=== PATIENT | female | born 1990 | race Caucasian/White ===

== ENCOUNTER 2018-01-01 05:06 | Emergency (ER) | payer OTHER ==
--- NOTE | 2018-01-01 05:13 | EDPHY ---
H & P Time Seen by Provider: 01/01/18 05:11 HPI/ROS: Chief Complaint: Syncope HPI: 27-year-old woman visiting from [place] got up to go to the bathroom this morning. On the way back from the bathroom patient had a syncopal episode. She states that when she got up she was not feeling well with general malaise. No nausea or vomiting. Did state she started developing a sore throat yesterday afternoon. Also had 2 glasses of wine with dinner. No fevers or chills. No chest pain or palpitations. Does not have a history of fainting in the past. No family history of coronary artery disease or sudden cardiac . Currently is feeling better with some general malaise at this time. No leg pain or swelling. No shortness of breath. ROS: 10 point Review of Systems is negative except as noted in the HPI. 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 Family History: non-contributory Physical Exam: Gen: Awake, Alert, No Distress HEENT: Nose: no rhinorrhea Eyes: PERRLA, EOMI Mouth: Moist mucosa Neck: Supple, no JVD Chest: nontender, lungs clear to auscultation Heart: S1, S2 normal, no murmur Abd: Soft, non-tender, no guarding Back: no CVA tenderness, no midline tenderness Ext: no edema, non-tender Skin: no rash Neuro: CN II-XII intact, Sensation grossly intact, Strength 5/5 in bilateral upper and lower extremities Constitutional: Initial Vital Signs Temperature (C) 36.7 C 01/01/18 05:05 Heart Rate 51 L 01/01/18 05:05 Respiratory Rate 20 01/01/18 05:05 Blood Pressure 110/72 01/01/18 05:05 O2 Sat (%) 92 01/01/18 05:05 O2 Delivery Mode Room Air Allergies/Adverse Reactions: amoxicillin Allergy (Verified 01/01/18 05:10) Penicillins Allergy (Verified 01/01/18 05:10) Medical Decision Making - Diagnostics EKG Interpretation: ECG time 5:14 a.m., sinus bradycardia with a rate of 45, borderline first- degree AV block, no acute ST or T-wave changes. 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 Patient is improved after a L of normal saline. Blood work is completely unremarkable. She had her orthostatic vital signs are normal. She is ambulating unassisted in the emergency department. Think her symptoms are likely secondary to a vasovagal response after going to the bathroom. She is tolerating p. O.. Will discharge with follow up with physician when she returns home. - Data Points Laboratory Results: Laboratory Results 01/01/18 05:15 01/01/18 05:15 01/01/18 01/01/18 01/01/18 05:15 05:15 05:15 WBC 14.64 10^3/uL H 10^3/uL (3.80-9.50) RBC 4.88 10^6/uL 10^6/uL (4.18-5.33) Hgb 15.6 g/dL g/dL (12.6-16.3) Hct 45.2 % % (38.0-47.0) MCV 92.6 fL fL (81.5-99.8) MCH 32.0 pg pg (27.9-34.1) MCHC 34.5 g/dL g/dL (32.4-36.7) RDW 11.7 % % (11.5-15.2) Plt Count 257 10^3/uL 10^3/uL (150-400) MPV 10.1 fL fL (8.7-11.7) Neut % (Auto) 75.0 % H % (39.3-74.2) Lymph % (Auto) 14.9 % L % (15.0-45.0) [place] % (Auto) 7.9 % % (4.5-13.0) Eos % (Auto) 1.5 % % (0.6-7.6) Baso % (Auto) 0.4 % % (0.3-1.7) Nucleat RBC Rel Count 0.0 % % (0.0-0.2) Absolute Neuts (auto) 10.98 10^3/uL H 10^3/uL (1.70-6.50) Absolute Lymphs (auto) 2.18 10^3/uL 10^3/uL (1.00-3.00) Absolute Monos (auto) 1.15 10^3/uL H 10^3/uL (0.30-0.80) Absolute Eos (auto) 0.22 10^3/uL 10^3/uL (0.03-0.40) Absolute Basos (auto) 0.06 10^3/uL 10^3/uL (0.02-0.10) Absolute Nucleated RBC 0.00 10^3/uL 10^3/uL (0-0.01) Immature Gran % 0.3 % % (0.0-1.1) Immature Gran # 0.05 10^3/uL 10^3/uL (0.00-0.10) Sodium 141 mEq/L mEq/L (135-145) Potassium 4.5 mEq/L mEq/L (3.5-5.2) Chloride 102 mEq/L mEq/L (97-110) Carbon Dioxide 26 mEq/l mEq/l (22-31) Anion Gap 13 mEq/L mEq/L (8-16) BUN 13 mg/dL mg/dL (7-23) Creatinine 0.7 mg/dL mg/dL (0.6-1.0) Estimated GFR > 60 Glucose 126 mg/dL H mg/dL (70-100) Calcium 9.8 mg/dL mg/dL (8.5-10.4) Beta HCG, Qual NEGATIVE Departure - Departure Disposition: Home, Routine, Self-Care Clinical Impression: Vasovagal syncope Condition: Good Instructions: Syncope (ED) Additional Instructions: Make sure to drink plenty of fluids. Avoid excessive strenuous exercise until your seen by her primary care physician. Follow up with your doctor in 2-3 days for further evaluation. Return to the emergency depart for further fainting, chest pain, shortness of breath, palpitations, or any other concerns. Referrals: Patient,NotPresent [Primary Care Provider] - As per Instructions
--- NOTE | 2018-01-01 05:16 | CPEKG ---
Heart Rate: 45 RR Interval: 1333 P-R Interval: 232 QRSD Interval: 90 QT Interval: 448 QTC Interval: 388 P [place]: 57 QRS [place]: 59 T Wave [place]: 34 EKG Severity - ABNORMAL ECG - EKG Impression: SINUS BRADYCARDIA EKG Impression: FIRST DEGREE AV BLOCK Electronically Signed By: Juan Murray 01-Jan-2018 05:42:08
[2018-01-01 05:26] LABS: PLATELET COUNT 257 10^3/uL (150-400)
[2018-01-01 06:19] VITALS: BP 97/64
== END 2018-01-01 06:24 | disposition home or self-care (01) ==
DX: R55 Syncope and collapse (principal)